=== PATIENT | female | born 1985 ===

== ENCOUNTER 2018-01-31 23:50 | Inpatient (IN) | payer BC, OTHER ==
[2018-02-01] MEDS: ELECTROLYTE-148 SOLN 1,000 ML IV SCH (00:15)
[2018-02-01] MEDS ORDERED: CITRIC ACID/SODIUM CITRATE 30 ML UNIT-DOSE CUP PO ONE (00:28)
--- NOTE | 2018-02-01 00:38 | HP ---
Past Medical History - Primary Care Physician PCP:: Dulce Maria Donnelly - Admission Chief Complaint: Complete Previa. Vaginal bleeding History of Present Illness: 32 yo G1 EDC 02/18 EDC 37.3 weeks with complete previa with vaginal bleeding. Pt with contractions + afm Cat 1 no active bleeding History Source: Patient Limitations to Obtaining History: No Limitations - Past Medical History ...: 1 - Past Surgical History Past Surgical History: Yes: None Hx Myomectomy: No Hx Transabdominal Cerclage: No - Alcohol/Substance Use Hx Alcohol Use: No History of Substance Use: reports: None - Social History Usual Living Arrangement: Yes: With Spouse History of Recent Travel: No Home Medications - Allergies Allergies/Adverse Reactions: Allergies Allergy/AdvReac Type Severity Reaction Status Date / Time No Known Allergies Allergy Verified 02/01/18 00:49 Review of Systems - Review of Systems Constitutional: reports: No Symptoms Eyes: reports: No Symptoms HENT: reports: No Symptoms Neck: reports: No Symptoms Cardiovascular: reports: No Symptoms Respiratory: reports: No Symptoms Gastrointestinal: reports: No Symptoms Genitourinary: reports: Vaginal Bleeding Breasts: reports: No Symptoms Reported Musculoskeletal: reports: No Symptoms Integumentary: reports: No Symptoms Neurological: reports: No Symptoms Endocrine: reports: No Symptoms Hematology/Lymphatic: reports: No Symptoms Psychiatric: reports: No Symptoms Physical Exam - Maternity Constitutional: Yes: Well Nourished, No Distress Cardiovascular: Yes: WNL Lungs: Clear to auscultation Breast(s): Yes: WNL - Abdominal Exam/OB Fundal Height: 37 Number of Fetuses: Single Presentation: Vertex Contractions: Yes Category: I - Vaginal Exam/OB Vaginal Bleediing: Yes, Light Dilatation (cm): closed Presentation: Vertex/Position Station: -2 - Physical Exam Musculoskeletal: Yes: WNL Extremities: Yes: WNL Edema: No Hemorrhage Risk Assessment - Risk Factors High Risk Factors: Yes: Placenta previa, low lying Risk Score: 2 Risk Level: High Risk Problem List - Problems (1) Complete placenta previa with hemorrhage, third trimester Code(s): O44.13 - COMPLETE PLACENTA PREVIA WITH HEMORRHAGE, THIRD TRIMESTER (2) 37 weeks gestation of Code(s): Z3A.37 - 37 WEEKS GESTATION OF (3) contractions Code(s): O47.9 - FALSE LABOR, UNSPECIFIED (4) Severe anemia Code(s): D64.9 - ANEMIA, UNSPECIFIED (5) Vaginal bleeding during , antepartum Code(s): O46.90 - ANTEPARTUM HEMORRHAGE, UNSPECIFIED, UNSPECIFIED TRIMESTER Assessment/Plan Complete previa vaginal bleeding contractions iup at 37 weeks Cat 1 Severe Anemia Plan transfusion x 2 units betametasone admit Primary Section notfy Peds notify anesthesia
[2018-02-01] MEDS ORDERED: BETAMET ACET/BETAMET NA PH 30 MG/5 ML VIAL ONE (00:43)
[2018-02-01] MEDS ORDERED: BETAMET ACET/BETAMET NA PH 30 MG/5 ML VIAL IM ONE (00:47)
[2018-02-01 01:15] LABS: BASO % 0.7 % (0-2.0); EOS % 0.3 % (0-4.5); HEMATOCRIT 22.6 % (32.4-45.2); LYMPH % 19.7 % (8-40); MCH 20.9 pg (25.7-33.7); MCHC 30.1 g/dl (32.0-36.0); MEAN CELL VOLUME 69.6 fl (80-96); MEAN PLT VOLUME 7.9 fl (7.5-11.1); MONO % 7.5 % (3.8-10.2); NEUT % 71.8 % (42.8-82.8); PLATELET COUNT 309 K/MM3 (134-434); RBC 3.24 M/mm3 (3.60-5.2); RDW 18.4 % (11.6-15.6); WHITE BLOOD COUNT 13.2 K/mm3 (4.0-10.0)
[2018-02-01] MEDS ORDERED: AMPICILLIN - 2 GM in SODIUM CHLORIDE 100 ML IVPB ONE (01:19)
[2018-02-01 01:20] LABS: HEMOGLOBIN 6.8 GM/dL (10.7-15.3)
[2018-02-01] MEDS ORDERED: ACETAMINOPHEN 1000 MG/100 ML VIAL (NON FORMULARY) IVPB ONE (01:20)
[2018-02-01] MEDS ORDERED: AMPICILLIN SODIUM 2 GM VIAL ONE (01:22)
[2018-02-01 01:31] LABS: INR 0.92 (0.83-1.09); PROTHROMBIN TIME (PATIENT) 10.9 SEC (9.7-13.0)
[2018-02-01 01:34] LABS: ACTIVATED PTT 27.2 SECONDS (25.2-36.5)
[2018-02-01] MEDS: CEFAZOLIN 1 GM/D5W 1 GM/50 ML BAG IVPB SCH ×3 (01:35→17:50)
[2018-02-01 01:37] LABS: ANION GAP 8 MMOL/L (8-16); BLOOD UREA NITROGEN 5 mg/dL (7-18); CHLORIDE 108 mmol/L (98-107); CO2 22 mmol/L (21-32); CREATININE 0.5 mg/dL (0.55-1.3); GLUCOSE,RANDOM 93 mg/dL (74-106); POTASSIUM 4.3 mmol/L (3.5-5.1); SODIUM 138 mmol/L (136-145)
[2018-02-01 02:01] VITALS: BMI 26.4
[2018-02-01] MEDS ORDERED: morphine SULFATE/Preservative Free 0.5 MG/ML (1cc Syringe) ONE (02:19)
[2018-02-01] MEDS ORDERED: PHENYLEPHRINE HCL 10 MG/1 ML SINGLE DOSE VIAL ONE (02:19)
[2018-02-01] MEDS ORDERED: ONDANSETRON 4 MG/2 ML VIAL IVPUSH PRN (02:40)
[2018-02-01] MEDS: OXYTOCIN 20 UNITS in 0.9% NS 20 UNIT/1,000 ML INFUS.BAG IV SCH ×2 (02:46→13:19)
[2018-02-01] MEDS ORDERED: OXYTOCIN 10 UNITS/ML VIAL ONE ×3 (02:46→02:49)
[2018-02-01] MEDS ORDERED: VASOPRESSIN 20 UNITS/ML VIAL IV ONE (02:55)
[2018-02-01] MEDS ORDERED: OXYTOCIN 20 UNITS in 0.9% NS 20 UNIT/1,000 ML INFUS.BAG IV ONE ×2 (03:16→06:03)
[2018-02-01 03:33] LABS: VENOUS PC02 41.5 mmHg (38-52); VENOUS PH 7.35 (7.32-7.42); VENOUS PO2 18.1 mmHg (28-48)
--- NOTE | 2018-02-01 03:42 | OP ---
Operative Note - Note: Operative Date: 02/01/18 Pre-Operative Diagnosis: Complete placenta previa. iup at 37 week. vaginal bleeding Operation: Section. abdominal myomectomy Findings: 4 cm myoma removed live male infant delivered in OT position Post-Operative Diagnosis: Other (serosal myoma) Surgeon: Dulce Maria Donnelly Flute Polisher: Colby Chilel Anesthesia: Spinal Estimated Blood Loss (mls): 1,000 Operative Report Dictated: Yes
[2018-02-01] MEDS ORDERED: METHYLERGONOVINE MALEATE 0.2 MG/1 ML AMP IM PRN (03:43)
[2018-02-01] MEDS ORDERED: IBUPROFEN 600 MG TABLET (FP) PO PRN (03:43)
[2018-02-01 03:48] LABS: ARTERIAL BLD GAS O2 SATURATION 11.4 % (90-98.9); ARTERIAL BLOOD GAS BASE EXCESS -5.6 meq/l (-2-2); ARTERIAL BLOOD GAS PCO2 51.9 mmHg (35-45); ARTERIAL BLOOD GAS pH 7.25 (7.35-7.45)
[2018-02-01] MEDS ORDERED: ACETAMINOPHEN INJECTION 100 ML IVPB ONE (06:03)
[2018-02-01 10:13] LABS: HEMATOCRIT 35.2 % (32.4-45.2); HEMOGLOBIN 10.6 GM/dL (10.7-15.3); MCHC 30.2 g/dl (32.0-36.0); MEAN CELL VOLUME 76.1 fl (80-96); MEAN PLT VOLUME 7.9 fl (7.5-11.1); PLATELET COUNT 250 K/MM3 (134-434); RBC 4.63 M/mm3 (3.60-5.2); RDW 20.1 % (11.6-15.6); WHITE BLOOD COUNT 24.1 K/mm3 (4.0-10.0)
[2018-02-02] MEDS: CEFAZOLIN 1 GM/D5W 1 GM/50 ML BAG IVPB SCH (01:41)
[2018-02-02] MEDS ORDERED: BISACODYL 10 MG SUPP.RECT RC PRN (03:43)
[2018-02-02] MEDS ORDERED: oxyCODONE HCL 5 MG TABLET PO PRN ×2 (03:43)
[2018-02-02 04:23] LABS: HBsAG SCREEN Negative (Negative)
[2018-02-02 06:09] LABS: RUBELLA IgG ANTIBODY 8.49 index (Immune >0.99)
[2018-02-02] MEDS: ACETAMINOPHEN 325 MG TABLET (FP) PO PRN ×2 (06:19→14:41)
[2018-02-02] MEDS: SIMETHICONE 80 MG TAB.CHEW (FP) PO PRN ×2 (06:19→14:41)
[2018-02-02] MEDS: IBUPROFEN 600 MG TABLET (FP) PO PRN ×2 (06:19→14:42)
[2018-02-02 07:23] LABS: BASO % 0.1 % (0-2.0); HEMATOCRIT 27.4 % (32.4-45.2); HEMOGLOBIN 8.4 GM/dL (10.7-15.3); LYMPH % 7.8 % (8-40); MCH 23.3 pg (25.7-33.7); MCHC 30.6 g/dl (32.0-36.0); MEAN CELL VOLUME 76.1 fl (80-96); MEAN PLT VOLUME 8.1 fl (7.5-11.1); MONO % 4.2 % (3.8-10.2); NEUT % 87.9 % (42.8-82.8); PLATELET COUNT 239 K/MM3 (134-434); RDW 20.1 % (11.6-15.6)
--- NOTE | 2018-02-02 11:34 | PN ---
Progress Note (short form) - Note Progress Note: ANESTHESIOLOGY POST-OP CHECK 32F s/p under spinal anesthesia, POD #1. No acute complaints. Pain 1/ 10 and tolerable. Denies N/V, numbness, weakness, headache, backache. Vital Signs Temperature 98.7 F 02/02/18 08:48 Pulse Rate 62 02/02/18 08:48 Respiratory Rate 20 02/02/18 08:48 Blood Pressure 92/56 L 02/02/18 08:48 O2 Sat by Pulse Oximetry (%) 100 02/01/18 07:00 Active Medications Acetaminophen (Tylenol -) 650 mg PO Q4H PRN PRN Reason: PAIN LEVEL 1-5 Last Admin: 02/02/18 06:19 Dose: 650 mg Bisacodyl (Dulcolax Suppository -) 10 mg RC PRN PRN PRN Reason: CONSTIPATION Diphenhydramine HCl (Benadryl Injection -) 25 mg IVPUSH Q4H PRN PRN Reason: Pruritis Parenteral Electrolytes (Plasma-Lyte 148 -) 1,000 mls @ 125 mls/hr IV [facility] Last Admin: 02/01/18 00:15 Dose: 125 mls/hr Oxytocin/Sodium Chloride (Normal Saline+20 Units Oxytocin -) 20 unit in 1,000 mls @ 125 mls/hr IV [facility] Last Admin: 02/01/18 13:19 Dose: 125 mls/hr Ibuprofen (Motrin -) 600 mg PO Q4H PRN PRN Reason: PAIN LEVEL 1-5 Last Admin: 02/02/18 06:19 Dose: 600 mg Methylergonovine Maleate (Methergine Injection -) 0.2 mg IM Q4H PRN PRN Reason: Excessive Bleeding (L&D) Ondansetron HCl (Zofran Injection) 4 mg IVPUSH Q4H PRN PRN Reason: NAUSEA Oxycodone HCl (Roxicodone -) 5 mg PO Q4H PRN PRN Reason: PAIN LEVEL 4 - 6 Oxycodone HCl (Roxicodone -) 10 mg PO Q4H PRN PRN Reason: PAIN LEVEL 7 - 10 Simethicone (Mylicon -) 80 mg PO Q4H PRN PRN Reason: GAS Last Admin: 02/02/18 06:19 Dose: 80 mg Gen: awake, alert, NAD No apparent anesthesia complications, pain well controlled. - Continue management as per primary team.
--- NOTE | 2018-02-02 11:37 | PN ---
Post Progress Note - Subjective Subjective: Pt seen and examined, feeling well. VB minimal overnight having some gas pain otherwise no complaints mckeon removed this a.m. denies CP/SOB/Dizziness/Headache Type of Delivery: Primary C/S Vital Signs: Vital Signs Temperature 98.7 F 02/02/18 08:48 Pulse Rate 62 02/02/18 08:48 Respiratory Rate 20 02/02/18 08:48 Blood Pressure 92/56 L 02/02/18 08:48 O2 Sat by Pulse Oximetry (%) 100 02/01/18 07:00 Uterus: Yes: Fundus Firm, Fundus below umbilicus Incision: Yes: Sutures intact Abdomen/GI: Yes: Abdomen soft, Abdominal Distention (slight distention, no tympany on percussion, soft), Tolerating PO (clears). No: Tender Lochia: Yes: Rubra Lochia, amount: Small Extremities: Yes: Calves non-tender Perineum: Yes: Intact Activity: Other (to begin ambulation today) - Labs Labs: CBC WBC 27.0 K/mm3 (4.0-10.0) H 02/02/18 06:30 RBC 3.60 M/mm3 (3.60-5.2) 02/02/18 06:30 Hgb 8.4 GM/dL (10.7-15.3) L 02/02/18 06:30 Hct 27.4 % (32.4-45.2) L D 02/02/18 06:30 MCV 76.1 fl (80-96) L 02/02/18 06:30 MCH 23.3 pg (25.7-33.7) L 02/02/18 06:30 MCHC 30.6 g/dl (32.0-36.0) L 02/02/18 06:30 RDW 20.1 % (11.6-15.6) H 02/02/18 06:30 Plt Count 239 K/MM3 (134-434) 02/02/18 06:30 MPV 8.1 fl (7.5-11.1) 02/02/18 06:30 Absolute Neuts (auto) 23.7 K/mm3 (1.5-8.0) H 02/02/18 06:30 Neutrophils % 87.9 % (42.8-82.8) H D 02/02/18 06:30 Lymphocytes % 7.8 % (8-40) L D 02/02/18 06:30 Monocytes % 4.2 % (3.8-10.2) 02/02/18 06:30 Eosinophils % 0.0 % (0-4.5) D 02/02/18 06:30 Basophils % 0.1 % (0-2.0) 02/02/18 06:30 Nucleated RBC % 0 % (0-0) 02/02/18 06:30 Problem List - Problems (1) Anemia Code(s): D64.9 - ANEMIA, UNSPECIFIED (2) Anemia Code(s): D64.9 - ANEMIA, UNSPECIFIED (3) delivery delivered Code(s): O82 - ENCOUNTER FOR DELIVERY WITHOUT INDICATION Assessment/Plan Ambulation once passes flatus to transition to PO s/p PRBC, elevated WBC this a.m., no fever, will recheck this afternoon to evaluate Hgb/WBC PO pain meds continue current management
[2018-02-02 11:49] LABS: ANISOCYTOSIS 1+; MACROCYTOSIS 0; PLATELET ESTIMATE NORMAL; TOXIC GRANULATION 1+
[2018-02-02 16:22] LABS: BASO % 0.1 % (0-2.0); HEMOGLOBIN 8.5 GM/dL (10.7-15.3); LYMPH % 8.4 % (8-40); MCH 24.7 pg (25.7-33.7); MCHC 32.9 g/dl (32.0-36.0); MEAN CELL VOLUME 75.2 fl (80-96); MEAN PLT VOLUME 8.3 fl (7.5-11.1); MONO % 4.4 % (3.8-10.2); NEUT % 87.1 % (42.8-82.8); PLATELET COUNT 272 K/MM3 (134-434); RBC 3.45 M/mm3 (3.60-5.2); RDW 20.5 % (11.6-15.6); WHITE BLOOD COUNT 24.2 K/mm3 (4.0-10.0)
[2018-02-02 17:43] LABS: ANISOCYTOSIS 1+; PLATELET ESTIMATE ADEQUATE
[2018-02-03] MEDS: ELECTROLYTE-148 SOLN 1,000 ML IV SCH (03:23)
[2018-02-03] MEDS: OXYTOCIN 20 UNITS in 0.9% NS 20 UNIT/1,000 ML INFUS.BAG IV SCH (03:23)
[2018-02-03] MEDS: ACETAMINOPHEN 325 MG TABLET (FP) PO PRN ×2 (07:45→23:36)
[2018-02-03] MEDS: IBUPROFEN 600 MG TABLET (FP) PO PRN ×2 (07:45→23:38)
[2018-02-03] MEDS: SIMETHICONE 80 MG TAB.CHEW (FP) PO PRN (23:36)
--- NOTE | 2018-02-03 23:55 | PN ---
Progress Note (SOAP) - Subjective Chief Complaint: Pt with elevated WBC Pt doing well afebrile - Current Medications Current Medications: Active Medications Acetaminophen (Tylenol -) 650 mg PO Q4H PRN PRN Reason: PAIN LEVEL 1-5 Last Admin: 02/03/18 23:36 Dose: 650 mg Amoxicillin/Clavulanate Potassium (Augmentin - 500mg Tablet) 1 tab PO BID@0800, 1730 JOSELO Bisacodyl (Dulcolax Suppository -) 10 mg RC PRN PRN PRN Reason: CONSTIPATION Ibuprofen (Motrin -) 600 mg PO Q4H PRN PRN Reason: PAIN LEVEL 1-5 Last Admin: 02/03/18 23:38 Dose: 600 mg Methylergonovine Maleate (Methergine Injection -) 0.2 mg IM Q4H PRN PRN Reason: Excessive Bleeding (L&D) Oxycodone HCl (Roxicodone -) 5 mg PO Q4H PRN PRN Reason: PAIN LEVEL 4 - 6 Oxycodone HCl (Roxicodone -) 10 mg PO Q4H PRN PRN Reason: PAIN LEVEL 7 - 10 Simethicone (Mylicon -) 80 mg PO Q4H PRN PRN Reason: GAS Last Admin: 02/03/18 23:36 Dose: 80 mg - Objective Vital Signs: Vital Signs Temperature 97.7 F 02/03/18 09:39 Pulse Rate 75 02/03/18 09:39 Respiratory Rate 20 02/03/18 09:39 Blood Pressure 104/67 02/03/18 09:39 O2 Sat by Pulse Oximetry (%) 100 02/01/18 07:00 Constitutional: Yes: Well Nourished, No Distress Gastrointestinal: Yes: WNL, Soft ....Post : Yes: Uterus firm, Uterus non-tender Edema: No Wound/Incision: Yes: Steri Strips, Open to air Labs Lab Results: CBC, BMP 02/02/18 15:25 02/01/18 01:00 Assessment/Plan RO endometritis PPH POD2 elevated wbc SP transfusion Plan augmentin OOB
[2018-02-04 07:26] LABS: BASO % 0.4 % (0-2.0); EOS % 0.3 % (0-4.5); HEMATOCRIT 25.3 % (32.4-45.2); HEMOGLOBIN 7.6 GM/dL (10.7-15.3); LYMPH % 20.3 % (8-40); MCH 23.2 pg (25.7-33.7); MCHC 30.1 g/dl (32.0-36.0); MEAN CELL VOLUME 77.1 fl (80-96); MEAN PLT VOLUME 7.3 fl (7.5-11.1); MONO % 6.8 % (3.8-10.2); NEUT % 72.2 % (42.8-82.8); PLATELET COUNT 250 K/MM3 (134-434); RBC 3.29 M/mm3 (3.60-5.2); RDW 21.3 % (11.6-15.6); WHITE BLOOD COUNT 12.1 K/mm3 (4.0-10.0)
--- NOTE | 2018-02-04 08:23 | PN ---
Post Progress Note - Subjective Subjective: 32 yo Para 1 status post primary , seen and evaluated. Doing well. Post Day: 2 Type of Delivery: Primary C/S Vital Signs: Vital Signs Temperature 99.0 F 02/03/18 22:00 Pulse Rate 64 02/03/18 22:00 Respiratory Rate 18 02/03/18 22:00 Blood Pressure 126/62 02/03/18 22:00 O2 Sat by Pulse Oximetry (%) 100 02/01/18 07:00 Breast Exam: Yes: Soft Uterus: Yes: Fundus Firm Incision: Yes: Dressing dry and intact Abdomen/GI: Yes: Abdomen soft, Tolerating PO Lochia: Yes: Rubra Lochia, amount: Small Extremities: Yes: Calves non-tender Activity: Ambulating - Labs Labs: CBC WBC 12.1 K/mm3 (4.0-10.0) H 02/04/18 06:45 RBC 3.29 M/mm3 (3.60-5.2) L 02/04/18 06:45 Hgb 7.6 GM/dL (10.7-15.3) L 02/04/18 06:45 Hct 25.3 % (32.4-45.2) L 02/04/18 06:45 MCV 77.1 fl (80-96) L 02/04/18 06:45 MCH 23.2 pg (25.7-33.7) L 02/04/18 06:45 MCHC 30.1 g/dl (32.0-36.0) L 02/04/18 06:45 RDW 21.3 % (11.6-15.6) H 02/04/18 06:45 Plt Count 250 K/MM3 (134-434) 02/04/18 06:45 MPV 7.3 fl (7.5-11.1) L D 02/04/18 06:45 Absolute Neuts (auto) 8.7 K/mm3 (1.5-8.0) H 02/04/18 06:45 Neutrophils % 72.2 % (42.8-82.8) 02/04/18 06:45 Neutrophils % (Manual) 81.0 % (42.8-82.8) 02/02/18 15:25 Band Neutrophils % 0.0 % 02/02/18 15:25 Lymphocytes % 20.3 % (8-40) D 02/04/18 06:45 Lymphocytes % (Manual) 16.0 % (8-40) D 02/02/18 15:25 Monocytes % 6.8 % (3.8-10.2) 02/04/18 06:45 Monocytes % (Manual) 3 % (3.8-10.2) L 02/02/18 15:25 Eosinophils % 0.3 % (0-4.5) D 02/04/18 06:45 Eosinophils % (Manual) 0.0 % (0-4.5) 02/02/18 15:25 Basophils % 0.4 % (0-2.0) D 02/04/18 06:45 Basophils % (Manual) 0.0 % (0-2.0) 02/02/18 15:25 Myelocytes % (Man) 0 % (0-2) 02/02/18 06:30 Promyelocytes % (Man) 0 % (0-2) 02/02/18 06:30 Blast Cells % (Manual) 0 % (0-0) 02/02/18 06:30 Nucleated RBC % 0 % (0-0) 02/04/18 06:45 Metamyelocytes 0 % (0-2) 02/02/18 06:30 Hypochromia 1+ 02/02/18 15:25 Toxic Granulation 1+ 02/02/18 06:30 Platelet Estimate Adequate 02/02/18 15:25 Polychromasia 1+ 02/02/18 06:30 Poikilocytosis 1+ 02/02/18 06:30 Anisocytosis 1+ 02/02/18 15:25 Microcytosis 1+ 02/02/18 06:30 Macrocytosis 0 02/02/18 06:30 Problem List - Problems (1) Status post primary low transverse section Code(s): Z98.891 - HISTORY OF UTERINE SCAR FROM PREVIOUS SURGERY Assessment/Plan Status post primary Stable Ambulation Analgesia as needed Continue post op care
[2018-02-04] MEDS: AMOX TR/POT CLAV 500MG/125MG TABLETS (FP) PO SCH ×2 (08:25→17:17)
[2018-02-04 12:24] LABS: ANISOCYTOSIS 1+; MACROCYTOSIS 1+; OVALOCYTE 1+; PLATELET ESTIMATE NORMAL
[2018-02-04] MEDS: FERROUS SO4 325 MG TABLET (FP) PO SCH (17:13)
[2018-02-04] MEDS: IBUPROFEN 600 MG TABLET (FP) PO PRN (20:00)
[2018-02-05] MEDS: FERROUS SO4 325 MG TABLET (FP) PO SCH (08:23)
[2018-02-05] MEDS: AMOX TR/POT CLAV 500MG/125MG TABLETS (FP) PO SCH (08:23)
--- NOTE | 2018-02-05 08:34 | DS ---
Physical Exam-BUSINESS PROCESS ASSOCIATE Vital Signs: Vital Signs Temperature 98.3 F 02/04/18 22:00 Pulse Rate 65 02/04/18 22:00 Respiratory Rate 20 02/04/18 22:00 Blood Pressure 117/60 02/04/18 22:00 O2 Sat by Pulse Oximetry (%) 100 02/01/18 07:00 Constitutional: Yes: Well Nourished, No Distress Neck: Yes: WNL Cardiovascular: Yes: WNL Respiratory: Yes: WNL, Regular, CTA Bilaterally Gastrointestinal: Yes: WNL, Normal Bowel Sounds, Soft ....Post : Yes: Uterus firm, Uterus non-tender Breast(s): Yes: WNL Musculoskeletal: Yes: WNL Extremities: Yes: WNL Edema: No Wound/Incision: Yes: Clean/Dry, Well Approximated, Steri Strips, Open to air Neurological: Yes: WNL, Alert, Oriented Labs: CBC, BMP 02/04/18 06:45 02/01/18 01:00 Delivery - Delivery Type of Anesthesia: Spinal Episiotomy/Laceration: None EBL (cc): 1,000 Delivery, Single - Stages of Labor Date of Delivery: 02/01/18 Time of Delivery: 02:45 Time Placenta Delivered: 02:46 - Condition of Spirits Model/Arch Support Maker Present: Yes Name: Taiwo Carrera Gender: Male Weight: 6 lb 15 oz Position: OP Total Hours ROM (Hrs/Mins): 0h1m - 1 Minute Total Score: 9 5 Minutes Total Score: 9 - Feeding Plan Initial Plan: Exclusive throughout hospitalization Discharge Summary Reason For Visit: LABOR ADMIT Current Active Problems 37 weeks gestation of (Acute) Anemia (Acute) Anemia (Acute) delivery delivered (Acute) Complete placenta previa with hemorrhage, third trimester (Acute) contractions (Acute) Severe anemia (Acute) Status post primary low transverse section (Acute) Vaginal bleeding during , antepartum (Acute) Procedures: Principal: Section Other Procedures: Transfusion Hospital Course: Unremarkable Condition: Good - Instructions Diet, Activity, Other Instructions: Physical activity Resume your normal everyday activity as tolerated no heavy lifting or exercise until seen by your surgeon. You may walk unlimited alicia of and climb stairs. You may resume driving the car when you feel safe and comfortable behind the wheel. No sexual activity as instructed. Wound care If you have a bandage, leave it on, and keep dry for 48-72 hours. After that time discard the outer bandage. If they are tapes on the skin under the out of bandage leave them in place. They will peel off in the next 7 to 10 days. Do Not Peel them off. You may shower the day after surgery. If there are tapes present on the skin, you may shower over them. Diet There are no dietary restrictions. Eat healthy, high-fiber foods. Drink 6 to 8 glasses of liquid each day. This will assist in keeping your bowels are regular. Pain management You may take Tylenol or acetaminophen or Ibuprofen (for example, Motrin, Advil etc.) from my pain prescription medication is ordered should be taken as prescribed for moderate to severe pain. Call MD for any of the following: Severe pain not relieved by medication Fever of 101 or higher Excessive bleeding or drainage on dressing Inability to urinate return to office in 1 week for incision check and 6 weeks for check. call for appointment. Referrals: Dulce Maria Donnelly MD [Staff Physician] - Disposition: HOME
[2018-02-05 08:42] VITALS: BP 110/58; PULSE 60; TEMP 98.1
[2018-02-05 09:10] LABS: BASO % 0.3 % (0-2.0); EOS % 1.1 % (0-4.5); HEMATOCRIT 25.8 % (32.4-45.2); HEMOGLOBIN 8.3 GM/dL (10.7-15.3); LYMPH % 19.9 % (8-40); MCH 24.6 pg (25.7-33.7); MCHC 32.1 g/dl (32.0-36.0); MEAN CELL VOLUME 76.8 fl (80-96); MEAN PLT VOLUME 7.2 fl (7.5-11.1); MONO % 5.6 % (3.8-10.2); NEUT % 73.1 % (42.8-82.8); PLATELET COUNT 301 K/MM3 (134-434); RBC 3.36 M/mm3 (3.60-5.2); WHITE BLOOD COUNT 10.4 K/mm3 (4.0-10.0)
[2018-02-05] MEDS: IBUPROFEN 600 MG TABLET (FP) PO PRN (12:41)
--- NOTE | 2018-02-06 14:01 | PATH ---
Surgical Pathology Report Patient Name: RACQUEL MARISCAL [facility]. Rec. #: [id number] /Age/Gender: 1985 (Age: 32) / F Account: [id number] Location: DELIVERY ROOM Taken: 02/01/2018 Received: 02/01/2018 Reported: 02/06/2018 Physicians: Dulce Maria Donnelly M.D. Specimen(s) Received A: PLACENTA B: MYOMA Clinical History , 37.4 weeks Complete previa, bleeding in labor Final Diagnosis A. PLACENTA, SECTION: 479 G THIRD TRIMESTER PLACENTA WITH TRIVASCULAR UMBILICAL CORD AND UNREMARKABLE PLACENTAL MEMBRANES. B. MYOMA, MYOMECTOMY: LEIOMYOMA WITH DEGENERATIVE CHANGES. Electronically Signed Liza Agarwal M.D. Gross Description A. The specimen is received fresh labeled placenta and is a 479 gram, 16.5 x 15.0 x 2.2 cm. placenta with attached membranes and umbilical cord. The attached membranes are gates, translucent with focal opacities and display circum-marginate insertion. The umbilical cord measures 12.5 cm. in length and averages 1.2 cm. in diameter. The cord inserts eccentrically, 4.5 cm. to the nearest margin. No true knots or strictures are identified. Cut surface of the umbilical cord reveals 3 vessels. The surface is hill blue with moderate fibrin deposition and appropriate caliber vessels. The maternal surface is red-brown with focal defects. Sectioning reveals red-brown, spongy parenchyma. No lesions are identified. Pump Erector sections are submitted in three cassettes as follows: 1- membrane rolls and umbilical cord; 2-3- full thickness sections of placenta. B. Received in formalin labeled "myoma," is a 12 g, 3.7 x 2.8 x 2.0 cm gates-mathew, rubbery nodule, consistent with a fibroid. The outer surface is smooth. Sectioning reveals degenerative parenchyma. Pump Erector sections are submitted in 2 cassettes. 02/03/201802/03/2018
--- NOTE | 2018-02-17 22:13 | OP ---
DATE OF OPERATION: 02/01/2018 PREOPERATIVE DIAGNOSES: Complete previa, vaginal bleeding, intrauterine at 37 weeks. OPERATION: Primary low transverse section and abdominal myomectomy. POSTOPERATIVE DIAGNOSES: Live male infant delivered in occiput transverse position and 4-cm myoma removed and serosal myoma. SURGEON: Dulce Maria Donnelly MD SPINE NURSE: ISAURA Ellis; unavailable. ANESTHESIA: Spinal. ESTIMATED BLOOD LOSS: 1000 mL PROCEDURE: Patient was taken to the operating room, placed in supine position, prepped and draped in the usual sterile fashion. Timeout was performed in accordance with hospital regulation. After spinal anesthesia had been given, Pfannenstiel skin incision was then made. Cautery was then used to go through layers of abdominal wall to the level of the fascia. Fascia was cut in the midline. Cautery was then used to open the fascia in the following fashion. Salvador was then used to bluntly and sharply dissect the rectus muscle off the fascia. Muscles split in the midline. Peritoneal cavity was then entered. Scalpel was then used to make a low transverse uterine incision. Bandage scissors were used to extend the incision upwards. A live male infant was delivered in OT position. Nose and mouth suction performed. Shoulders were delivered without difficulty. was given to escrow agent. Placenta previa was noted. Placenta was then removed from the lower segment. Lower segment was then noted to be bleeding significantly and was packed. Methergine was given to the patient. Pitocin was given to the patient. IM prostaglandin was inserted into the bed of the uterus. Further hemostasis was achieved using sutures which were used to suture the endometrium. Hemostasis was achieved using the suture technique. Uterine incision was then closed using 0 Biosyn suture, first layer continuous and locking, second layer imbricating the first layer. Hemostasis was achieved using figure-of- eight sutures. A 4-cm serosal myoma was noted, and cautery of the myoma was then done and myoma was then removed using sharp and blunt technique. Serosa of the uterus was then closed using V-Loc suture. Hemostasis was achieved. Uterus interiorized. Abdominal cavity cleaned with clean lap pads. Tubes and ovaries were noted to be normal. Peritoneum closed using 0 Biosyn suture. Fascia was then closed using 0 Vicryl suture in 2 parts. Skin was then closed using 3-0 Vicryl in subcuticular fashion. Wound was washed and dressed. Patient was given 1 unit of packed red blood cells intraoperatively. Estimated blood loss was 1000 mL. Dressing was then placed. Patient had tolerated the procedure well, was taken to recovery room in stable condition. Segun [id number] MTDD
== END 2018-02-05 14:15 | disposition home or self-care (01) | DRG 788 ==
LOC: JDEL 23:50 → JLDR 02-01 → J3W 02-01 08:41
PROVIDERS: ADMIT Obstetrics & Gynecology; ATTEND Obstetrics & Gynecology
PROC: 10D00Z1 Extraction of Products of Conception, Low, Open Approach (ICD-10-PCS; principal; 2018-02-01)
PROC: 0UB90ZZ Excision of Uterus, Open Approach (ICD-10-PCS; 2018-02-01)
DX: O44.13 Complete placenta previa with hemorrhage, third trimester (principal); O99.013 Anemia complicating pregnancy, third trimester; O34.13 Maternal care for benign tumor of corpus uteri, third trimester; Z3A.37 37 weeks gestation of pregnancy; Z37.0 Single live birth
CPT/HCPCS: 36415; 36430; 36600; 80048; 82803; 85025; 85027; 85610; 85730; 86593; 86762; 86850; 86900; 86901; 86922; 87340; 88305-TC; 88307-TC; 96372; J0131; P9038; P9058